=== PATIENT | female | born 2000 | race Two or more races ===

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

== ENCOUNTER 2021-08-30 14:05 | Emergency (ER) | payer OTHER ==
[2021-08-30 14:48] VITALS: BP 113/61; PULSE 90; TEMP 98.7; BMI 31.2
== END 2021-08-30 16:57 | disposition home or self-care (01) ==
LOC: JER 14:05
DX: R19.8 Other specified symptoms and signs involving the digestive system and abdomen (principal); J06.9 Acute upper respiratory infection, unspecified
CPT/HCPCS: 70360-TC-FY; 87651; 99284-25; C9803; U0003; U0005